=== PATIENT | male | born 1980 | race Caucasian/White ===

== ENCOUNTER 2017-11-16 09:45 | Emergency (ER) | payer OTHER ==
[2017-11-16 09:53] VITALS: BP 139/89; PULSE 85; RESP 18; TEMP 98.3
[2017-11-16] MEDS ORDERED: traMADol 50 MG STARTER PACK 3 TAB BTL PO STA (10:13)
[2017-11-16] MEDS ORDERED: PENICILLIN VK 500MG STARTER 4 TAB BTL PO STA (10:13)
--- NOTE | 2017-11-16 10:13 | ED ---
General Adult HPI - General Chief complaint: Dental/Oral Stated complaint: Dental pain Time Seen by Provider: 11/16/17 10:01 Source: patient, RN notes reviewed Mode of arrival: ambulatory Limitations: no limitations - History of Present Illness Initial comments: 37-year-old male presents to the emergency department with a chief complaint of left-sided dental pain. Patient states that this started about 2 days ago with some left-sided facial swelling. He denies any fever chills. He denies any nausea or vomiting. He denies any radiation the neck or difficulty opening closing the mouth. He states that he has not noticed any pus or drainage from the teeth. He does admit to history of poor dental hygiene and currently does not see a dentist. The patient was concerned due to the continued symptoms and the facial swelling so he thought that he should be evaluated. Patient denies any other complaints at this time. Patient denies any recent fever, chills, shortness of breath, chest pain, back pain, abdominal pain, nausea vomiting, numbness or tingling, dysuria or hematuria, constipation or diarrhea, headaches or visual changes, or any other current symptoms. - Related Data Previous Rx's Medication Instructions Recorded Hydrocodone/Acetaminophen [[place] 1 each PO Q6HR PRN #20 tab 05/30/14 5-325] Penicillin V Potassium [Pen Vee K] 500 mg PO QID #40 tab 05/30/14 traMADol HCl [Ultram] 50 mg PO Q4H PRN #25 tab 05/30/14 Ibuprofen [Motrin] 600 mg PO Q6HR PRN #20 tab 11/16/17 Penicillin V Potassium [Pen Vee K] 500 mg PO QID 7 Days tablet 11/16/17 Allergies Allergy/AdvReac Type Severity Reaction Status Date / Time No Known Allergies Allergy Verified 11/16/17 09:54 Review of Systems ROS Statement: Those systems with pertinent positive or pertinent negative responses have been documented in the HPI. ROS Other: All systems not noted in ROS Statement are negative. Past Medical History Past Medical History: No Reported History History of Any Multi-Drug Resistant Organisms: None Reported Past Surgical History: No Surgical Hx Reported Past Psychological History: No Psychological Hx Reported Smoking Status: Current every day smoker Past Alcohol Use History: Rare Past Drug Use History: Marijuana General Exam Limitations: no limitations General appearance: alert, in no apparent distress Head exam: Present: other (Patient does appear to have swelling over the left cheek.) Eye exam: Present: normal appearance, PERRL, EOMI. Absent: scleral icterus, conjunctival injection, periorbital swelling ENT exam: Present: mucous membranes moist, normal external ear exam, other ( Patient does appear to have poor dentition throughout. No visible abscess is noted. Multiple fractured teeth.) Neck exam: Present: normal inspection. Absent: tenderness, meningismus, lymphadenopathy Respiratory exam: Present: normal lung sounds bilaterally. Absent: respiratory distress, wheezes, rales, rhonchi, stridor Cardiovascular Exam: Present: regular rate, normal rhythm, normal heart sounds. Absent: systolic murmur, diastolic murmur, rubs, gallop, clicks Neurological exam: Present: alert, oriented X3 Psychiatric exam: Present: normal affect, normal mood Skin exam: Present: warm, dry, intact, normal color. Absent: rash Course Vital Signs 11/16/17 09:52 Temperature 98.3 F Pulse Rate 85 Respiratory 18 Rate Blood Pressure 139/89 O2 Sat by Pulse 98 Oximetry Medical Decision Making - Medical Decision Making 37 yo male presents to the ER with cc of dental pain. At this time patient does appear to have multiple cavities. At this time there is no visible abscess noted. we'll start patient antibiotics as well as pain medication for home. We did discuss follow-up with the dentist and he was given information. We did discuss patient's questions and he stated that he understood. This time the patient will be discharged home. He is in agreement this plan. Return parameters were discussed. Disposition Clinical Impression: Dental caries Disposition: HOME SELF-CARE Condition: Stable Instructions: Dental Caries (ED) Additional Instructions: Please use medication as discussed. Please follow up with family doctor if symptoms have not improved over the next two days. Please return to the emergency room if your symptoms increase or worsen or for any other concerns. [facility] [place] [address] [phone] (existing clients only) For new clients: [phone] 1st consult: $50 (includes Xrays) Usually 30% less then private dentist for visits after. [employer] Have to pay $50 for Xrays anmd rest is covered. [phone] Prescriptions: Ibuprofen [Motrin] 600 mg PO Q6HR PRN #20 tab PRN Reason: Pain Penicillin V Potassium [Pen Vee K] 500 mg PO QID 7 Days tablet Is patient prescribed a controlled substance at d/c from ED?: No Referrals: Raffi Vann MD [STAFF PHYSICIAN] - 1-2 days Time of Disposition: 10:12
== END 2017-11-16 10:29 | disposition home or self-care (01) ==
LOC: EC 09:45
DX: K02.9 Dental caries, unspecified (principal); S02.5XXA Fracture of tooth (traumatic), initial encounter for closed fracture; F17.200 Nicotine dependence, unspecified, uncomplicated; Z53.20 Procedure and treatment not carried out because of patient's decision for unspecified reasons; X58.XXXA Exposure to other specified factors, initial encounter
CPT/HCPCS: 99282